=== PATIENT | female | born 1965 | race Two or more races ===

== ENCOUNTER 2016-06-22 23:28 | Inpatient (IN) | payer OTHER ==
[~2016-06-22] VITALS: Ht 162.6 cm; Wt 62.6 kg
[~2016-06-22 23:28] MED LIST: NKM
[2016-06-23] VITALS (8 sets, daily range): BP systolic 122–177; BP diastolic 55–80
[2016-06-23 00:56] LABS: BASOPHILS % (AUTO) 1.2 % (0.0-2.0); EOSINOPHILS % (AUTO) 3.6 % (0.0-3.0); LYMPHOCYTES % (AUTO) 21.1 % (20.0-45.0); MEAN CORPUSCULAR HEMOGLOBIN 31.7 PG (27.0-31.0); MEAN CORPUSCULAR HGB CONC 33.6 G/DL (32.0-36.0); MEAN CORPUSCULAR VOLUME 94 FL (80-99); MEAN PLATELET VOLUME 8.7 FL (6.5-10.1); MONOCYTES % (AUTO) 7.8 % (1.0-10.0); NEUTROPHILS % (AUTO) 66.3 % (45.0-75.0); PLATELET COUNT 141 K/UL (150-450); RED CELL DISTRIBUTION WIDTH 12.6 % (11.6-14.8); WHITE BLOOD COUNT 8.2 K/UL (4.8-10.8)
[2016-06-23 01:07] LABS: TROPONIN I < 0.30 ng/mL (<=0.30)
[2016-06-23 01:10] LABS: ALANINE AMINOTRANSFERASE 13 U/L (3-33); ALBUMIN/GLOBULIN RATIO 1.3 (1.0-2.7); ANION GAP 14 (5-15); ASPARTATE AMINO TRANSFERASE 17 U/L (5-40); CALCIUM 9.5 mg/dL (8.6-10.2); CARBON DIOXIDE 27 mEQ/L (20-30); CHLORIDE 101 mEQ/L (98-107); GLOMERULAR FILTRATION RATE 58.9 mL/min (>60); HEMOLYSIS 8; SODIUM 142 mEQ/L (135-145); TOTAL PROTEIN 7.4 g/dL (6.6-8.7)
[2016-06-23 01:21] LABS: CKMB < 1.5 ng/mL (< 3.8)
[2016-06-23] MEDS ORDERED: Metoprolol 25mg tab ORAL ONE (02:00)
--- NOTE | 2016-06-23 02:05 | Emergency Room Report ---
History of Present Illness General Chief Complaint: Palpitations Source: Patient, Family Member, Medical Record Present Illness HPI 51 YO F walk-in patient with palpitations and SOB worse with orthopnea. Denies fever/chills, cough, chest pain. EF Apr 04, 2016 was 40%. Also noted to have ascending aortic aneurysm without leak. Has known mod/severe AR. Recommended to have cardiac cath, which she did. Patient and states "cath was normal" but she was told she needs aortic valve replacement. Was told to followup in a "few months" or go to ER for worsening symptoms, which is why she is here now. She also results of an echo done Jun 05, 2016 which now shows worsened EF of 33.3 % Allergies: Coded Allergies: No Known Allergies (Unverified , 04/02/16) Patient History Past Medical History: HTN, other - Ascending aortic aneuyrsm, mod/severe AR, dilated ischemic cardiomyoapthy, CHF Past Surgical History: none Pertinent Family History: none Social History: Denies: alcohol use, drug use, smoking Last Menstrual Period: Apr Now: No Immunizations: UTD Reviewed Nursing Documentation: PMH: Agreed, PSxH: Agreed Nursing Documentation-PMH Hx Cardiac Problems: Yes Hx Hypertension: Yes Hx Cancer: No Hx Gastrointestinal Problems: No Hx Neurological Problems: No Review of Systems All Other Systems: negative except mentioned in HPI Physical Exam Vital Signs Date Time Temp Pulse Resp B/P Pulse Ox O2 Delivery O2 Flow Rate FiO2 06/22/16 23:47 98.1 68 18 177/85 99 Room Air Sp02 EP Interpretation: reviewed, normal General Appearance: normal inspection, well appearing, no apparent distress, alert, GCS 15, non-toxic Head: normocephalic, atraumatic Eyes: bilateral eye EOMI, bilateral eye PERRL ENT: normal ENT inspection, hearing grossly normal, normal voice Neck: normal inspection, full range of motion, supple, no bony tend Respiratory: normal inspection, lungs clear, normal breath sounds, no rhonchi, no respiratory distress, no retraction, no accessory muscle use, no wheezing Cardiovascular #1: regular rate, rhythm, no edema Gastrointestinal: normal inspection, normal bowel sounds, non tender, soft, no guarding, no hernia Genitourinary: no CVA tenderness Musculoskeletal: normal inspection, back normal, normal range of motion, Stormy' s Sign negative Neurologic: normal inspection, alert, oriented x3, responsive, thread reeler III-XII nml as tested, motor strength/tone normal, speech normal Psychiatric: normal inspection, judgement/insight normal, mood/affect normal Skin: normal inspection, normal color, no rash Medical Decision Making Diagnostic Impression: Primary Impression: Palpitations Additional Impressions: Cardiomyopathy Qualified Codes: I42.0 - Dilated cardiomyopathy CHF (congestive heart failure) Qualified Codes: I50.32 - Chronic diastolic (congestive) heart failure Orthopnea Aortic aneurysm without rupture Qualified Codes: I71.2 - Thoracic aortic aneurysm, without rupture ER Course 51 YO F with known dilated cardiomyopathy and mod/severe AR and apparently worsened EF from April to now with palpitations and orthopnea. VS stable in ED. Afebrile. Labs: Mild MILLICENT, has had previously. Troponin 0. Mild pro-BNP elevation. H&H stable. No leuks. CXR: No PNA. + cardiomegaly. No pulm congestion ECG is NSR, no ischemia. ++PVCs A: Worsening palpitations, worsening EF, orthopnea Gave additional Metopolol PO in ED No serious acute on chronic CHF currently Does not require supplemental O2 or BIPAP Is compliant with meds, Lasix Likely needs CT surgery evaluation for possible AV replacement sooner than thought Endorsed to Dr Yepez for tele admission at 255am EKG Diagnostic Results Rate: normal Rhythm: NSR ST Segments: no acute changes Other Impression multiple PVCs ASA given to the pt in ED: No Rhythm Strip Diag. Results EP Interpretation: yes Rhythm: NSR, other - Multiple PVCs Chest X-Ray Diagnostic Results EP Interpretation: Yes Findings: no consolidation, no effusion, no pneumothorax, other - No pulm congestion. + cardiomegaly Number of Views: 1 Last Vital Signs Date Time Temp Pulse Resp B/P Pulse Ox O2 Delivery O2 Flow Rate FiO2 06/23/16 00:00 98.1 82 16 144/66 100 Room Air Status: improved Disposition: ADMITTED INPATIENT Condition: Serious Referrals: DECLAN FOWLER [facility],REFERRING (PCP) SONAL PADGETT M.D. Jun 23, 2016 02:05
[2016-06-23] MEDS ORDERED: LISINOPRIL20 MG ORAL (02:23)
[2016-06-23] MEDS ORDERED: METOPROLOL TART50 MG ORAL (02:23)
[2016-06-23] MEDS ORDERED: ATORVASTATIN CA10 MG ORAL (02:23)
[2016-06-23] MEDS ORDERED: FUROSEMIDE40 MG ORAL (02:23)
[2016-06-23] MEDS ORDERED: FAMOTIDINE20 MG ORAL (02:23)
[2016-06-23] MEDS ORDERED: AMLODIPINE BESY10 MG ORAL (02:23)
[2016-06-23] MEDS ORDERED: Furosemide 40mg tab ORAL SCH (09:00)
[2016-06-23] MEDS ORDERED: Metoprolol 50mg tab ORAL SCH (09:00)
[2016-06-23] MEDS: Lisinopril 20mg tab ORAL SCH ×2 (09:29→17:44)
[2016-06-23] MEDS ORDERED: Influenza Virus Vaccine 0.5ml IM ONE (09:30)
--- NOTE | 2016-06-23 10:05 | Diagnostic Imaging Report ---
Indication: Chest Pain Comparison: through 16 A single view chest radiograph was obtained. Findings: No definite infiltrate or pulmonary vascular congestion identified. The heart is enlarged. The aorta is mildly enlarged consistent with atherosclerotic vascular disease. The bones are unremarkable. Impression: No acute disease
--- NOTE | 2016-06-23 13:28 | History & Physical ---
History and Physical History & Physicial Dictated for Int Med-Dr Yepez no. [id number]. DIANE BANSAL Jun 23, 2016 13:28
[2016-06-23] MEDS ORDERED: Heparin 5000 units/ml inj SUBQ SCH (14:00)
--- NOTE | 2016-06-23 14:11 | Consultation ---
History of Present Illness General Date patient seen: Jun 23, 2016 Chief Complaint: Palpitations Reason for Consultation: Palpitation Present Illness HPI 51 year old female with hx of multiple cardiac problems including, EF of 40%, Inferolateral ischemia. Mild ascending aortic aneurysm and moderate to severe AI , who had cardiac cath recently in another facility and was told to wait a few month before having surgery ( what type?). she brought in again by paramedics for acute onset of palpitation. Her Systolic BP was 170 on admission but the heart rate was 50. She received beta blockers, her bp improved and was sent to Telemetry. Allergies: Coded Allergies: No Known Allergies (Unverified , 04/02/16) Medication History Scheduled Amlodipine Besylate* (Amlodipine Besylate*), 10 MG ORAL DAILY, (Reported) Atorvastatin Calcium* (Lipitor*), 10 MG ORAL BEDTIME, (Reported) Famotidine (Famotidine), 20 MG ORAL DAILY, (Reported) Furosemide* (Lasix*), 40 MG ORAL DAILY, (Reported) Lisinopril (Lisinopril*), 20 MG ORAL DAILY, (Reported) Metoprolol Tartrate* (Metoprolol Tartrate*), 50 MG ORAL EVERY 12 HOURS, ( Reported) No Known Medications* (NKM - No Known Medications*), 0 ., (Reported) Patient History Healthcare decision maker Resuscitation status Full Code Advanced Directive on File No Past Medical/Surgical History Past Medical/Surgical History: (1) ACS (acute coronary syndrome) (2) Syncope Review of Systems Constitutional: Reports: no symptoms Physical Exam General Appearance: WD/WN Lines, tubes and drains: peripheral HEENT: normocephalic, anicteric Neck: non-tender, supple Respiratory/Chest: chest wall non-tender, lungs clear Cardiovascular/Chest: normal peripheral pulses, normal rate Abdomen: normal bowel sounds, soft Genitourinary/Rectal: normal genital exam, normal rectal exam Extremities: normal range of motion Skin Exam: normal pigmentation Last 24 Hour Vital Signs Date Time Temp Pulse Resp B/P Pulse Ox O2 Delivery O2 Flow Rate FiO2 06/23/16 12:00 69 06/23/16 11:35 98.3 65 18 126/64 100 Room Air 06/23/16 09:29 122/55 06/23/16 08:00 55 06/23/16 07:59 98.1 48 18 122/55 99 Room Air 06/23/16 04:47 50 06/23/16 04:35 97.9 56 20 166/72 100 Room Air 06/23/16 04:25 98.0 65 19 158/80 100 Room Air 06/23/16 04:00 98.0 65 19 158/80 100 Room Air 06/23/16 02:06 65 177/78 06/23/16 02:00 97.8 68 18 177/78 100 Room Air 06/23/16 00:00 98.1 82 16 144/66 100 Room Air 06/22/16 23:47 98.1 68 18 177/85 99 Room Air Intake and Output 06/22/16 06/23/16 19:00 07:00 # Voids 2 Laboratory Tests Test 06/23/16 00:45 White Blood Count 8.2 K/UL (4.8-10.8) Red Blood Count 3.90 M/UL (4.20-5.40) L Hemoglobin 12.4 G/DL (12.0-16.0) Hematocrit 36.8 % (37.0-47.0) L Mean Corpuscular Volume 94 FL (80-99) Mean Corpuscular Hemoglobin 31.7 PG (27.0-31.0) H Mean Corpuscular Hemoglobin Concent 33.6 G/DL (32.0-36.0) Red Cell Distribution Width 12.6 % (11.6-14.8) Platelet Count 141 K/UL (150-450) L Mean Platelet Volume 8.7 FL (6.5-10.1) Neutrophils (%) (Auto) 66.3 % (45.0-75.0) Lymphocytes (%) (Auto) 21.1 % (20.0-45.0) Monocytes (%) (Auto) 7.8 % (1.0-10.0) Eosinophils (%) (Auto) 3.6 % (0.0-3.0) H Basophils (%) (Auto) 1.2 % (0.0-2.0) Sodium Level 142 mEQ/L (135-145) Potassium Level 4.0 mEQ/L (3.4-4.9) Chloride Level 101 mEQ/L (98-107) Carbon Dioxide Level 27 mEQ/L (20-30) Anion Gap 14 (5-15) Blood Urea Nitrogen 23 mg/dL (7-23) Creatinine 1.0 mg/dL (0.5-0.9) H Estimat Glomerular Filtration Rate 58.9 mL/min (>60) Glucose Level 121 mg/dL (74-106) H Calcium Level 9.5 mg/dL (8.6-10.2) Total Bilirubin 0.4 mg/dL (0.0-1.2) Aspartate Amino Transf (AST/SGOT) 17 U/L (5-40) Alanine Aminotransferase (ALT/SGPT) 13 U/L (3-33) Alkaline Phosphatase 94 U/L (35-104) Total Creatine Kinase 61 U/L (26-140) Creatine Kinase MB < 1.5 ng/mL (< 3.8) Creatine Kinase MB Relative Index 2.4 Troponin I < 0.30 ng/mL (<=0.30) Pro-B-Type Natriuretic Peptide 658 pg/mL (0-125) H Total Protein 7.4 g/dL (6.6-8.7) Albumin 4.3 g/dL (3.5-5.2) Globulin 3.1 g/dL Albumin/Globulin Ratio 1.3 (1.0-2.7) Height (Feet): 5 Height (Inches): 4.00 Weight (Pounds): 138 Medications Current Medications Medications (Trade) Dose Ordered Sig/Viridiana Route PRN Reason Start Time Stop Time Status Last Admin Dose Admin Atorvastatin Calcium (Lipitor) 10 mg BEDTIME ORAL 06/23/16 21:00 07/23/16 20:59 Furosemide (Lasix) 40 mg EVERY 12 HOURS ORAL 06/23/16 09:00 07/23/16 08:59 06/23/16 09:29 Heparin Sodium (Porcine) (Heparin 5000 units/ml) 5,000 units EVERY 8 HOURS SUBQ 06/23/16 14:00 07/23/16 13:59 Lisinopril (Prinivil) 20 mg BID ORAL 06/23/16 09:00 07/23/16 08:59 06/23/16 09:29 Ranitidine HCl (Zantac) 150 mg QHS ORAL 06/23/16 21:00 07/23/16 20:59 Assessment/Plan Problem List: (1) Hypertensive emergency ICD Codes: I16.1 - Hypertensive emergency SNOMED: 882129995795082 (2) Aortic aneurysm ICD Codes: I71.9 - Aortic aneurysm of unspecified site, without rupture SNOMED: 45077996 (3) Aortic insufficiency ICD Codes: I35.1 - Nonrheumatic aortic (valve) insufficiency SNOMED: 68979034 (4) Valvular cardiomyopathy ICD Codes: I42.8 - Other cardiomyopathies SNOMED: 87664952 Assessment/Plan symptomatic treatment cardiology evaluation obtain records from the other hospitals. SUSANNE SHELL Jun 23, 2016 14:11
--- NOTE | 2016-06-23 17:43 | Cardiac Electrophysiology PN ---
Subjective Subjective [id number] 04/16 EF 50%. Mild MR. Awaiting cardiac cath and echo from [facility] Objective Last 24 Hour Vital Signs Date Time Temp Pulse Resp B/P Pulse Ox O2 Delivery O2 Flow Rate FiO2 06/23/16 16:00 97.7 64 18 130/74 99 Room Air 06/23/16 12:00 69 06/23/16 11:35 98.3 65 18 126/64 100 Room Air 06/23/16 09:29 122/55 06/23/16 08:00 55 06/23/16 07:59 98.1 48 18 122/55 99 Room Air 06/23/16 04:47 50 06/23/16 04:35 97.9 56 20 166/72 100 Room Air 06/23/16 04:25 98.0 65 19 158/80 100 Room Air 06/23/16 04:00 98.0 65 19 158/80 100 Room Air 06/23/16 02:06 65 177/78 06/23/16 02:00 97.8 68 18 177/78 100 Room Air 06/23/16 00:00 98.1 82 16 144/66 100 Room Air 06/22/16 23:47 98.1 68 18 177/85 99 Room Air Intake and Output 06/22/16 06/23/16 19:00 07:00 # Voids 2 Laboratory Tests Test 06/23/16 00:45 White Blood Count 8.2 K/UL (4.8-10.8) Red Blood Count 3.90 M/UL (4.20-5.40) L Hemoglobin 12.4 G/DL (12.0-16.0) Hematocrit 36.8 % (37.0-47.0) L Mean Corpuscular Volume 94 FL (80-99) Mean Corpuscular Hemoglobin 31.7 PG (27.0-31.0) H Mean Corpuscular Hemoglobin Concent 33.6 G/DL (32.0-36.0) Red Cell Distribution Width 12.6 % (11.6-14.8) Platelet Count 141 K/UL (150-450) L Mean Platelet Volume 8.7 FL (6.5-10.1) Neutrophils (%) (Auto) 66.3 % (45.0-75.0) Lymphocytes (%) (Auto) 21.1 % (20.0-45.0) Monocytes (%) (Auto) 7.8 % (1.0-10.0) Eosinophils (%) (Auto) 3.6 % (0.0-3.0) H Basophils (%) (Auto) 1.2 % (0.0-2.0) Sodium Level 142 mEQ/L (135-145) Potassium Level 4.0 mEQ/L (3.4-4.9) Chloride Level 101 mEQ/L (98-107) Carbon Dioxide Level 27 mEQ/L (20-30) Anion Gap 14 (5-15) Blood Urea Nitrogen 23 mg/dL (7-23) Creatinine 1.0 mg/dL (0.5-0.9) H Estimat Glomerular Filtration Rate 58.9 mL/min (>60) Glucose Level 121 mg/dL (74-106) H Calcium Level 9.5 mg/dL (8.6-10.2) Total Bilirubin 0.4 mg/dL (0.0-1.2) Aspartate Amino Transf (AST/SGOT) 17 U/L (5-40) Alanine Aminotransferase (ALT/SGPT) 13 U/L (3-33) Alkaline Phosphatase 94 U/L (35-104) Total Creatine Kinase 61 U/L (26-140) Creatine Kinase MB < 1.5 ng/mL (< 3.8) Creatine Kinase MB Relative Index 2.4 Troponin I < 0.30 ng/mL (<=0.30) Pro-B-Type Natriuretic Peptide 658 pg/mL (0-125) H Total Protein 7.4 g/dL (6.6-8.7) Albumin 4.3 g/dL (3.5-5.2) Globulin 3.1 g/dL Albumin/Globulin Ratio 1.3 (1.0-2.7) JULIO FELIPE Jun 23, 2016 17:43
--- NOTE | 2016-06-23 18:51 | Cardiology Report ---
APPROVED REPORT EKG Measurement Heart [id number] Sinus rhythm with premature supraventricular complexes Otherwise normal ECG
[2016-06-23] MEDS ORDERED: Tubing IV Secondary IV ONE (19:59)
[2016-06-23] MEDS ORDERED: NS 275ml ONE (19:59)
--- NOTE | 2016-06-23 21:28 | History and Physical Report ---
DATE OF ADMISSION: 06/23/2016 CHIEF COMPLAINT: The patient is a 51-year-old, female, who presents with complaint of heart palpitations. HISTORY OF PRESENT ILLNESS: The patient was admitted to [facility] in 04/2016. The patient was admitted at that time for shortness of breath. The patient states she had an echocardiogram on 06/05/2016, which showed an ejection fraction of 33%. The patient states she has aortic valve insufficiency per the echocardiogram as above. The patient states she began to experience palpitations approximately 2 or 3 weeks ago. The patient states they are worst at night. The patient denies chest pain. The patient presented to [facility] complaining of palpitations. The patient was admitted for palpitations to rule out acute coronary syndrome. PAST MEDICAL HISTORY: Significant for. 1. Hypertension. 2. New aortic valve insufficiency diagnosed as above. PAST SURGICAL HISTORY: The patient denies. CURRENT MEDICATIONS: 1. Metoprolol 50 mg one tablet p.o. twice daily. 2. Lisinopril 20 mg one tablet p.o. twice daily. 3. Lasix 20 mg one tablet p.o. daily. 4. Norvasc 10 mg one p.o. daily p.r.n. systolic greater than 155. Pepcid 20 mg one tablet p.o. daily. ALLERGIES: No known drug allergies. SOCIAL HISTORY: The patient is and works as a obgyn specialist. The patient denies tobacco or alcohol use. REVIEW OF SYSTEMS: Constitutional: The patient denies weight loss or weight gain. The patient denies fevers or chills. HEENT: The patient denies ear or throat pain. Cardiovascular: The patient complains of heart palpitations as above. The patient denies chest pain. Chest: The patient denies wheeze or shortness of breath. Abdomen: The patient denies nausea, vomiting, diarrhea, or constipation. Genitourinary: The patient denies dysuria or increased frequency of urination. Neuromuscular: The patient denies seizures or generalized weakness. PHYSICAL EXAMINATION: VITAL SIGNS: Temperature 97.9 degrees, respirations 20, pulse 56, and blood pressure 166/72. GENERAL: The patient is a well-developed, well-nourished, female, in no apparent distress. HEENT: Eyes, pupils are equal and responsive to light and accommodation. Extraocular movements are intact. NECK: Supple without lymphadenopathy. CHEST: Lungs are clear to auscultation bilaterally without wheezes or rales. CARDIOVASCULAR: Regular rhythm and rate. S1 and S2 normal without murmurs, rubs, or gallops. ABDOMEN: Soft, nontender, and nondistended. Positive bowel sounds. No evidence of hepatosplenomegaly. Currently, no rebound or guarding noted. EXTREMITIES: Negative for clubbing, cyanosis, or edema. RECTAL: Refused. GENITAL: Refused. NEUROLOGIC: Cranial nerves II through XII are grossly intact without focal deficits. Motor strength is bilaterally. Deep tendon reflexes are 2+ plantar. LABORATORY STUDIES: WBC 8.2, hemoglobin 12.4, hematocrit 36.8, and platelets 141,000. Sodium 142, potassium 4.0, chloride 101, CO2 27, BUN 23, creatinine 1.0, and glucose 121. Troponin is less than 0.3. BNP elevated at 658. An EKG demonstrated normal sinus rhythm with multiple premature ventricular contractions. Otherwise, no acute ST or Q-waves noted. ASSESSMENT: This is a 51-year-old female. 1. Palpitation. 2. Aortic valve insufficiency by history. 3. Hypertension. TREATMENT: 1. Palpitation/aortic valve insufficiency. Cardiology consultation was obtained with Dr. Norman Mccullough. A repeat echocardiogram is pending. The patient may be in atrial fibrillation given valve disease. We will follow recommendation of Cardiology. 2. Hypertension. Continue metoprolol, lisinopril, and Lasix as above. 3. Congestive heart failure. Continue Lasix as above. Phu Cheng M.D. DR: KERVIN JOB#: [id number] CC:
--- NOTE | 2016-06-23 23:57 | Consultation ---
DATE OF CONSULTATION: 06/23/2016 CARDIOLOGY CONSULTATION CONSULTING PHYSICIAN: Norman Mccullough M.D. REFERRING PHYSICIAN: Demond Yepez M.D. REASON FOR CONSULTATION: Evaluation of cardiac arrhythmia and mitral valve issues. HISTORY OF PRESENT ILLNESS: The patient is a 51-year-old lady with history of cardiomyopathy, ejection fraction of 40% based on echocardiogram in 04/2016 as well as history of aortic aneurysm and moderate aortic regurgitation, who apparently had cardiac catheterization, which showed normal coronaries. The patient was told that she needs a valve replacement. The patient came to the emergency room with increasing shortness of breath and palpitation. Her last echocardiogram at [facility] showed ejection fraction of 50% with only focal aortic stenosis with mild left ventricular hypertrophy and she had only mild to moderate mitral regurgitation. The patient presented for further evaluation. REVIEW OF SYSTEMS: Review of systems was performed and was negative other what was mentioned in the history of present illness. PAST MEDICAL HISTORY: Includes: 1. Hypertension. 2. History of cardiomyopathy, ejection fraction improved. 3. History of mitral valve regurgitation. SOCIAL HISTORY: Lives at home with family. Does not smoke or drink alcohol. PHYSICAL EXAMINATION: VITAL SIGNS: Blood pressure 160/70, pulse 70, respirations 18, and she is afebrile. HEAD AND NECK: Shows no JVD. LUNGS: Clear. CARDIOVASCULAR: Shows regular S1 and S2 with a soft systolic murmur. ABDOMEN: Soft and nontender. EXTREMITIES: No pitting edema. LABORATORY DATA: Her labs show a white count of 8.2, hemoglobin of 11.4, hematocrit 36.8, and platelet count 141,000. Sodium 142, potassium 4.0, BUN of 20, creatinine 1, and glucose of 121. Troponin negative x2. BNP is 658. ASSESSMENT AND PLAN: 1. Palpitations, these are due to PACs and premature ventricular contractions, no evidence of atrial fibrillation. 2. History of mitral regurgitation. Echocardiogram will be repeated with most recent one on 04/03/2016 showed ejection fraction within normal range of 50% and no significant valvular pathology. 3. Hypertension. Blood pressure was , however, control the blood pressure. 4. Mild ascending aortic aneurysm. Thank you very much, Dr. Yepez, for allowing me to participate in the care of this patient. Please do not hesitate to contact me if you have any questions regarding my evaluation. Norman Mccullough M.D. DR: JUNO JOB#: [id number] CC:
--- NOTE | 2016-06-24 14:36 | Discharge Summary ---
Discharge Summary Hospital Course Date of Admission Jun 23, 2016 at 02:33 Date of Discharge Jun 23, 2016 at 20:00 Admitting Diagnosis ACUTE CORONARY SYNDROME, CHRONIC HEART FAILURE HPI Lilian Johnson is a 51 year old female who was admitted on Jun 23, 2016 at 02:33 for Acute Coronary Syndrome, Chronic Heart Failure Hospital Course dc [place]ell dictated #[id number] Discharge Discharge Disposition Patient signed AMA Discharge Diagnoses: Discharge Instructions Discharge Instructions Special Instructions I have been assigned to complete a D/C Summary on this account. I was not involved in the patient management Mary Quevedo NP (Vanchtein) Jun 24, 2016 14:36
--- NOTE | 2016-06-25 05:17 | Discharge Summary 2 SIG ---
DATE OF ADMISSION: 06/23/2016 DATE OF DISCHARGE ( SIGNED AGAINST MEDICAL ADVICE) : 06/23/2016 REASON FOR ADMISSION: 51-year-old female, came to emergency department walking in with her due to the complaint of palpitation and shortness of breath as well as orthopnea. She denied fever, chills, cough, or chest pain. According to the record, her ejection fraction in April 2016 was between 40% and 50% and right ventricular systolic pressure of 43 consistent with mild pulmonary hypertension. She also noted to have ascending aortic aneurysm without leak and mitral regurgitation. At that time, the patient was recommended to have cardiac catheterization, which according to the patient, she had. The patient and her stated that catheterization results were normal, but she was told she needs a valve replacement and she was told to follow up in few months or go to emergency room for worsening symptoms. She also stated that she had echocardiogram done on 06/05/2016 in another facility with ejection fraction of 33%. Troponin was negative. The patient's chest x-ray revealed cardiomegaly, no other acute cardiopulmonary disease. The patient was transferred to telemetry floor. ADMITTING DIAGNOSES: 1. Palpitation, rule out acute coronary syndrome. 2. Dilated ischemic cardiomyopathy. 3. Chronic diastolic congestive heart failure. 4. Mild ascending aortic aneurysm. 5. Moderate mitral regurgitation. 6. Hypertension. HOSPITAL STAY: The patient was admitted to telemetry floor. Cardiology consult was requested. Cardiology had seen the patient for palpitation and concluded that her palpitations were secondary to premature atrial contraction and premature ventricular contractions, seen on telemetry, but there was no evidence of atrial fibrillation. Echocardiogram was ordered. Medical management for congestive heart failure resumed with beta-manolo, KHANH inhibitor, and diuretics. Blood pressure was managed with the same regimen of beta-manolo, KHANH inhibitor, and diuretic, and was stable. The patient decided to sign against medical advice and go to [facility] since she was treated in that hospital, and they have old information about her. Risks and benefits were explained to the patient about leaving against medical advice. The patient insisted on leaving against medical advice without waiting for Dr. Yepez to call back. The patient signed against medical advice form and left. FINAL DIAGNOSES: 1. Palpitations, secondary to multiple premature atrial contractions, premature ventricular contractions, no evidence of atrial fibrillation. 2. Dilated ischemic cardiomyopathy. 3. Chronic diastolic congestive heart failure. 4. Mild ascending aortic aneurysm. 5. Moderate mitral regurgitation. 6. Dilated ischemic cardiomyopathy. 7. Mild pulmonary hypertension. 8. Hypertension. Of note, the echocardiogram which was done in April 2016 revealed ejection fraction between 40% and 50% and Demond Yepez M.D. I have been assigned to dictate discharge summary on this account and I was not involved in the patient's management. Mary Quevedo (vanchtein) N.PMarko DR: NELSON JOB#: [id number] CC: SHEMAR
== END 2016-06-23 20:00 | disposition left against medical advice (07) | DRG 201 ==
LOC: EMR 06-23 01:00 → 2E 06-23 02:33 → EDBEDREQ 06-23 04:13 → EMR 06-23 04:25
DX: I49.1 Atrial premature depolarization (principal); I42.0 Dilated cardiomyopathy; I50.32 Chronic diastolic (congestive) heart failure; I49.3 Ventricular premature depolarization; I25.5 Ischemic cardiomyopathy; I71.4 Abdominal aortic aneurysm, without rupture; I34.0 Nonrheumatic mitral (valve) insufficiency; I27.2 Other secondary pulmonary hypertension; I10 Essential (primary) hypertension
CPT/HCPCS: 36415; 71010; 80053; 82550; 82553; 83880; 84484; 85025; 87081; 93005; Q2036